=== PATIENT | female | born 1990 | race Caucasian/White ===

== ENCOUNTER 2021-09-30 18:19 | Emergency (ER) | payer MEDICAID, SELFPAY ==
[2021-09-30 18:48] VITALS: BP 154/89; PULSE 75; RESP 16; TEMP 37.5; O2SAT 100; BMI 33.3
--- NOTE | 2021-09-30 18:53 | USR_ITS ---
PROCEDURE INFORMATION: Exam: US Pelvis Complete, Transabdominal and US Duplex Artery and Vein, Ovaries, Complete Exam date and time: 09/30/2021 7:23 PM Age: 31 years old Clinical indication: Other: Post bleeding TECHNIQUE: Imaging protocol: Real-time transabdominal pelvic ultrasound with image documentation. Real-time duplex ultrasound scan of the arterial and venous flow of the ovaries with B-mode, color Doppler flow and spectral waveform analysis. Complete Pelvis, Complete Duplex. COMPARISON: US BPP w/o NST [id number] 12/19/2014 2:36 PM FINDINGS: Uterus: Uterus measures 11.2 x 4.9 x 8.7 cm. There is a trace amount of fluid in the endometrial canal. Endometrium:The endometrium has a lobulated heterogeneous thickened appearance and on image 25 measures 1.6 mm in thickness with poorly defined posterior border concerning for blood clots or retained products of conception. Cervix: There is a small amount of fluid in the cervix. Probable nabothian cysts are noted in the cervix. Right ovary/adnexa: The right ovary measures 2.7 x 2.8 x 2.5 cm. The right ovary is unremarkable in appearance. Subcentimeter ovarian cysts are noted. Left ovary/adnexa: The left ovary measures 3.7 x 2.5 x 1.4 cm. The left ovary is unremarkable in appearance. Subcentimeter ovarian cysts are noted. Intraperitoneal space: There is trace fluid in the cul-de-sac. Urinary bladder: Collapsed US/US pelvic complete* [id number] IMPRESSION: 1. The endometrium has a lobulated heterogeneous thickened appearance and on image 25 measures 1.6 mm in thickness with poorly defined posterior border concerning for blood clots or retained products of conception. 2. Unremarkable ovaries without evidence of torsion. Subcentimeter ovarian cysts are noted.
--- NOTE | 2021-09-30 19:00 | W.ED.FEMALGU ---
HPI - Female Genitourinary General: Chief complaint: Vaginal Bleeding Stated complaint: abd pain/ heavy bleeding 10 days Time Seen by Provider: 09/30/21 18:52 Source: patient Mode of arrival: ambulatory Limitations: no limitations History of Present Illness: This patient presents to the emergency department because of concerns about pelvic cramping with vaginal bleeding. She is 10 days from a spontaneous vaginal delivery at term without complications. She states that she really had minimal bleeding and then a couple days ago noted increasing bleeding some cramping and some clot with tissue passage. He states she is felt count of malaise with decreased appetite over the last 24 to 48 hours but no documented fevers. She is breast-feeding and not having any issues with fluid intake. No dysuria diarrhea etc. She has had no abdominal surgeries. She is a G4 P 4 A0. MD elicited complaint: pelvic pain Location of symptoms: vaginal Quality of pain: cramping Vaginal bleeding: moderate Exacerbating factors: none Associated symptoms: Deny headache(s), nausea or vaginal bleeding Review of Systems Const: Reports: change in appetite and malaise; Denies: fever(s) or chills Eyes: Denies: change in vision or blurry vision ENMT: Denies: throat pain, odynophagia or hoarseness Card: Denies: chest pain, palpitations, irregular heart rhythm or edema Resp: Denies: dyspnea, productive cough or non-productive cough GI: Denies: nausea, vomiting or diarrhea : Reports: pelvic pain Musc: Denies: back pain, extremity pain or extremity swelling Skin/Breast: Denies: rash, pruritus or erythema Neuro: Denies: headache(s), numbness in extremities or weakness in extremities Endo: Denies: polyuria or polydipsia Col[place]/Lymph: Denies: easy bruising or easy bleeding Physical Exam Narrative: EXAM NARRATIVE: Alert no acute distress and appears quite comfortable. Const: COMMON NORMALS: no acute distress, average body habitus and patient oriented x3 HENMT: COMMON NORMALS: normocephalic, atraumatic and moist oral mucous membranes HEAD & SCALP: normocephalic and atraumatic Eye: COMMON NORMALS: Equal, round and reactive pupils present, EOMs intact bilaterally and conjunctivae normal CONJUNCTIVA: Yes conjunctivae normal PUPIL: Yes Equal, round and reactive pupils present Neck/C-Spine: COMMON NORMALS: full ROM Chest: COMMONS NORMALS: normal inspection of the chest Resp: COMMON NORMALS: normal respiratory effort and No use of accessory muscles EFFORT & INSPECTION: Yes able to speak in complete sentences Cardio: COMMON NORMALS: regular rate and Peripheral pulses 2+ throughout RATE: regular rate PERIPHERAL PULSES: Peripheral pulses 2+ throughout : SPECULUM EXAM - VAGINA: No vaginal bleeding, No tissue present in vagina, Yes Vaginal discharge present (Yellowish discharge present. Cervix negative for any lacerations tears.) and Yes other (No mucosal lacerations noted.) SPECULUM EXAM - CERVIX: Yes Cervical os closed, No Tissue present in the cervical os and No Cervical bleeding OB/EXTERNAL & SPECULUM: No no tissue noted in vagina and vaginal bleeding Back/Pelvis: COMMON NORMALS: thoraco-lumbar ROM normal Extremity: COMMON NORMALS: normal to inspection, full ROM, capillary refill normal and no pedal edema Neuro: COMMON NORMALS: patient oriented x3, moves all extremities, no focal motor deficits and no sensory deficits noted SPEECH: speech normal Course Consultations: Consultation #1: Discussed current findings this evening with Dr. Lacy on-call for Dr. Wilson at [place]. Reviewed her current findings and he will provide method for follow-up in the next 24 hours. Time: 21:25 Vital Signs: Vital signs: Vital Signs Temperature 99.5 F 09/30/21 18:48 Pulse Rate 75 09/30/21 18:48 Respiratory Rate 16 09/30/21 18:48 Blood Pressure 154/89 09/30/21 18:48 Pulse Oximetry 100 09/30/21 18:48 MDM - Female Medical Decision Making Patient presents with some increased vaginal bleeding . Ultrasound this evening does suggest some possible retained products versus clot in the uterus. She is hemodynamically stable and her laboratories are reassuring. I discussed with [employer] on-call in [place] who will do a follow-up tomorrow. He recommended an empiric dose of 100 mg of doxycycline this evening. This was all discussed with the patient who voiced understanding and again is hemodynamically stable to be managed with close follow-up. Medical Records I reviewed the patient's medical records. Lab Data I reviewed the patient's lab results. : 09/30/21 19:10 09/30/21 19:10 Radiology Impressions Pelvis Ultrasound 09/30/21 18:53 IMPRESSION: 1. The endometrium has a lobulated heterogeneous thickened appearance and on image 25 measures 1.6 mm in thickness with poorly defined posterior border concerning for blood clots or retained products of conception. 2. Unremarkable ovaries without evidence of torsion. Subcentimeter ovarian cysts are noted. Laboratory Results WBC 13.5 10^3/uL (4.0-10.0) H 09/30/21 19:10 RBC 4.63 10^6/uL (4.1-5.3) 09/30/21 19:10 Hgb 12.7 g/dL (11.5-15.3) 09/30/21 19:10 Hct 39.7 % (37.0-47.0) 09/30/21 19:10 MCV 85.7 fl (81-99) 09/30/21 19:10 MCH 27.4 pg (28.0-34.0) L 09/30/21 19:10 MCHC 32.0 g/dL (30.0-36.0) 09/30/21 19:10 RDW 13.6 % (12.1-15.1) 09/30/21 19:10 Plt Count 426 10^3/cmm (130-400) H 09/30/21 19:10 MPV 10.4 fL (7.4-10.4) 09/30/21 19:10 Neut % (Auto) 60.7 % 09/30/21 19:10 Lymph % (Auto) 28.2 % 09/30/21 19:10 [place] % (Auto) 7.6 % 09/30/21 19:10 Eos % (Auto) 2.4 % 09/30/21 19:10 Baso % (Auto) 0.5 % 09/30/21 19:10 Neut # (Auto) 8.19 10^3/uL (1.8-7.7) H 09/30/21 19:10 Lymph # (Auto) 3.8 10^3/uL (0.8-4.8) 09/30/21 19:10 [place] # (Auto) 1.0 10^3/uL (0.2-0.9) H 09/30/21 19:10 Eos # (Auto) 0.3 10^3/uL (0.0-0.8) 09/30/21 19:10 Baso # (Auto) 0.1 10^3/uL (0.0-0.1) 09/30/21 19:10 Nucleated RBC % (auto) 0 % 09/30/21 19:10 Nucleated RBCs # 0.0 /100WBC 09/30/21 19:10 PT 13.30 SECONDS (12.1-14.9) 09/30/21 19:10 INR 0.98 (0.8-1.2) 09/30/21 19:10 APTT 27.6 SECONDS (23.9-36.7) 09/30/21 19:10 Sodium 140 mmol/L (136-145) 09/30/21 19:10 Potassium 3.5 mmol/L (3.5-5.1) 09/30/21 19:10 Chloride 104 mmol/L (98-107) 09/30/21 19:10 Carbon Dioxide 23 mmol/L (22-29) 09/30/21 19:10 Anion Gap 16.5 (5-19) 09/30/21 19:10 BUN 8 mg/dL (6-20) 09/30/21 19:10 Creatinine 0.7 mg/dL (0.5-0.9) 09/30/21 19:10 GFR Calculation 98.3 mL/min (90-130) 09/30/21 19:10 Glucose 86 mg/dL (65-115) 09/30/21 19:10 Calculated Osmolality 288 mOsm/kg (285-295) 09/30/21 19:10 Calcium 8.4 mg/dL (8.5-10.5) L 09/30/21 19:10 Total Bilirubin 0.2 mg/dL (0.15-1.2) 09/30/21 19:10 AST 12 U/L (0-32) 09/30/21 19:10 ALT 11 U/L (0-33) 09/30/21 19:10 Alkaline Phosphatase 110 IU/L (35-105) H 09/30/21 19:10 Total Protein 6.9 g/dL (6.6-8.7) 09/30/21 19:10 Albumin 3.7 g/dL (3.5-5.2) 09/30/21 19:10 Globulin 3.2 g/dL (1.3-4.6) 09/30/21 19:10 Discharge Plan Discharge Patient Disposition: Home Clinical Impression: Vaginal bleeding Condition: Stable Discharge Orders: Discharge ED (Routine); Ordered 09/30/21 Ordered By: Juan Jose Kimball Discharge Diet: Usual diet Discharge Activity: Increase activity as tolerated Patient Instructions: Opioid Safety Activity Restrictions/Additional Instructions: Call Dr. Wilson tomorrow morning to be seen tomorrow for an follow-up. If Dr. Wilson is not available call Dr. Lacy's office at [phone] and he will provide follow-up for you tomorrow. If you have any increase or worsening symptoms at any time return to this or the nearest emergency department. Coding Level of Care Code ED Rn Palliative Care for Susan Fwtom Exam Comprehensive
[2021-09-30 19:19] LABS: Basophils # 0.1 10^3/uL (0.0-0.1); Basophils % 0.5 %; Eosinophils # 0.3 10^3/uL (0.0-0.8); Eosinophils % 2.4 %; Hematocrit 39.7 % (37.0-47.0); Hemoglobin 12.7 g/dL (11.5-15.3); Lymphocytes # 3.8 10^3/uL (0.8-4.8); Lymphocytes % 28.2 %; Mean Corpuscular Hemoglobin 27.4 pg (28.0-34.0); Mean Corpuscular Volume 85.7 fl (81-99); Mean Platelet Volume 10.4 fL (7.4-10.4); Monocytes % 7.6 %; Neutrophils # 8.19 10^3/uL (1.8-7.7); Neutrophils % 60.7 %; Nucleated Red Blood Cells % 0 %; Platelet Count 426 10^3/cmm (130-400); Red Blood Count 4.63 10^6/uL (4.1-5.3); Red Cell Distribution Width 13.6 % (12.1-15.1); White Blood Count 13.5 10^3/uL (4.0-10.0)
[2021-09-30 19:33] LABS: Alanine Aminotransferase 11 U/L (0-33); Albumin Level 3.7 g/dL (3.5-5.2); Alkaline Phosphatase 110 IU/L (35-105); Aspartate Amino Transferase 12 U/L (0-32); Blood Urea Nitrogen 8 mg/dL (6-20); Calcium 8.4 mg/dL (8.5-10.5); Carbon Dioxide 23 mmol/L (22-29); Chloride 104 mmol/L (98-107); Creatinine Clr Calc Pharmacy 149.7573; Globulin 3.2 g/dL (1.3-4.6); Glomerular Filtration Rate 98.3 mL/min (90-130); Glucose 86 mg/dL (65-115); Osmolality Calculated 288 mOsm/kg (285-295); Sodium 140 mmol/L (136-145); Total Bilirubin 0.2 mg/dL (0.15-1.2); Total Protein 6.9 g/dL (6.6-8.7)
[2021-09-30 19:35] LABS: Anion Gap 16.5 (5-19); Potassium 3.5 mmol/L (3.5-5.1)
[2021-09-30 19:47] LABS: INR 0.98 (0.8-1.2); Partial Thromboplastin Time 27.6 SECONDS (23.9-36.7)
[2021-09-30 21:49] VITALS: PULSE 76; RESP 14; O2SAT 99
[2021-09-30] MEDS: doxycycline 100 mg Tablet PO (21:49)
== END 2021-09-30 21:50 | disposition home or self-care (01) ==
PROVIDERS: Physician Assistant; Emergency Provider Emergency Medicine
DX: O72.2 Delayed and secondary postpartum hemorrhage (principal)
CPT/HCPCS: 76856; 80053; 85025; 85610; 85730; 87070; 87205; 99283